=== PATIENT | male | born 1975 | race Caucasian/White ===

== ENCOUNTER 2018-03-23 04:16 | Emergency (ER) | payer MEDICAID ==
[2018-03-23 04:24] VITALS: TEMP 98.4
[2018-03-23] MEDS ORDERED: Lidocaine 1% Inj (20ml) INFIL STA (04:34)
[2018-03-23] MEDS ORDERED: Bacitracin 500 Units/gm Oint Foilpak UD TOP ONE (04:34)
[2018-03-23] MEDS ORDERED: Tdap Vaccine 0.5 ml Vial (10-64 yrs) IM ONE ×2 (04:34→04:40)
[2018-03-23] MEDS ORDERED: Bacitracin 500 Units/gm Oint Foilpak UD ONE (04:40)
--- NOTE | 2018-03-23 04:45 | C.PDOC ---
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 Patient reports he has been drinking ETOH tonight. Denies weakness or numbness. Time Seen by Provider: 03/23/18 04:28 Chief Complaint (Nursing): Abnormal Skin Integrity History Per: Patient History/Exam Limitations: no limitations Onset/Duration Of Symptoms: Hrs Current Symptoms Are (Timing): Still Present Location Of Injury: Left: Hand (Thumb) Quality Of Symptoms: Other (Laceration) Recent travel outside of the [place]: No Past Medical History Reviewed: Historical Data, Nursing Documentation, Vital Signs Vital Signs: Last Vital Signs Temp 98.4 F 03/23/18 04:17 Pulse 101 H 03/23/18 05:33 Resp 16 03/23/18 05:33 BP 121/81 03/23/18 05:33 Pulse Ox 100 03/23/18 05:33 Family History: States: Unknown Family Hx - Social History Hx Alcohol Use: Yes Hx Substance Use: No - Immunization History Hx Tetanus Toxoid Vaccination: No Hx Influenza Vaccination: No Hx Pneumococcal Vaccination: No Review Of Systems Musculoskeletal: Positive for: Hand Pain Skin: Positive for: Other (Laceration) Neurological: Negative for: Weakness, Numbness Physical Exam - Physical Exam Appears: Non-toxic Skin: Warm, Dry Head: Atraumatic, Normacephalic Eye(s): bilateral: Normal Inspection Extremity: Normal ROM (x4), Capillary Refill (<2 seconds), Other (2cm laceration to left thumb) Pulses: Left Radial: Normal, Right Radial: Normal Neurological/Psych: Oriented x3, Normal Speech, Normal Motor, Normal Sensation ED Course And Treatment O2 Sat by Pulse Oximetry: 97 (Room air) Pulse Ox Interpretation: Normal Laceration - Laceration Repair Left thumb laceration Wound Length (In cm): 2 Description Of Wound: Linear Wound Cleansed With: Sterile Saline Anesthesia: Lidocaine 1% Wound Examination: Irrigated With Saline, No FB With Wound Exploration, No Tendon Injury With Wound Exploration Wound Closure: Suture Suture Technique And Material Used: Nylon (Three 4-0) Wound Complexity: Simple Medical Decision Making Medical Decision Making: Tetanus vaccination administered. Patient tolerated laceration repair without any difficulty, bacitracin and dressing applied. Patient given proper wound care instructions and advised to follow up for suture removal. Disposition Counseled Patient/Family Regarding: Diagnosis, Need For Followup - Disposition Referrals: Non [facility] Provider, [Primary Care Provider] - Disposition: HOME/ ROUTINE Disposition Time: 05:21 Condition: STABLE Additional Instructions: Remove dressing in 24 hours. Keep area clean and dry. May wash gently with soap and water. Change dressing 1-2 times daily. Return to ER if fever occurs, redness or swelling around wound, pus in the wound. Please follow up with your primary doctor, clinic, or urgent care for suture removal in 8-10 days Instructions: Laceration Repair With Stitches (DC) Forms: [employer] (Telugu) - POA Present On Arrival: None - Clinical Impression Clinical Impression: Thumb laceration - PA / [employer] / Resident Statement MD/DO has reviewed & agrees with the documentation as recorded. - Scribe Statement The provider has reviewed the documentation as recorded by the Scribev Ruth All medical record entries made by the Scribe were at my direction and personally dictated by me. I have reviewed the chart and agree that the record accurately reflects my personal performance of the history, physical exam, medical decision making, and the department course for this patient. I have also personally directed, reviewed, and agree with the discharge instructions and disposition.
[2018-03-23] MEDS ORDERED: Lidocaine 1% MPF (30 ml) Inj INFIL STA (04:53)
[2018-03-23 05:34] VITALS: BP 121/81; PULSE 101; RESP 16
[2018-03-23 05:37] VITALS: O2SAT 97
== END 2018-03-23 05:32 | disposition home or self-care (01) ==
LOC: SUPCPDRO 04:16 → C.ER 04:16
DX: S61.012A Laceration without foreign body of left thumb without damage to nail, initial encounter (principal); W26.0XXA Contact with knife, initial encounter; Z23 Encounter for immunization